=== PATIENT | male | born 1960 | race Caucasian/White ===

== ENCOUNTER 2019-03-01 18:30 | Emergency (ER) | payer OTHER ==
[~2019-03-01] VITALS: Ht 188 cm; Wt 88.5 kg
[~2019-03-01 18:30] MED LIST: AUGMENTIN 875875 MG PO; CIPRO500 MG PO; HUMIRA40 MG/0.1 SQ; HYDROCODON-ACE1 EAC8 PO; HYDROCODONE-AP1 EAC6 PO; KEFLEX500 MG PO; MULTIVITAMINS PO; MUPIROCIN22 GM TOP; NORCO 5-325 TA1 EACH PO; ONDANSETRON HCL4 M2 PO; PROTONIX40 M1 PO
[2019-03-01] MEDS ORDERED: CRESTOR20 MG PO (19:06)
[2019-03-01] MEDS ORDERED: ENTYVIO300 MG IV (19:08)
[2019-03-01 20:05] LABS: URINE BILIRUBIN NEGATIVE (Negative); URINE BLOOD NEGATIVE (Negative); URINE COLOR YELLOW; URINE GLUCOSE-RANDOM* NEGATIVE (Negative); URINE KETONES TRACE (Negative); URINE LEUKOCYTES-REFLEX NEGATIVE (Negative); URINE NITRITE-REFLEX NEGATIVE (Negative); URINE PROTEIN (DIPSTICK) NEGATIVE (Negative); URINE SPECIFIC GRAVITY 1.015 (1.005-1.035); URINE UROBILINOGEN 0.2 E.U./dl (0.2-1.0)
[2019-03-01 20:06] LABS: URINE CLARITY CLOUDY
[2019-03-01 20:07] LABS: ABSOLUTE NEUTROPHILS 5.5 thou/uL (1.4-8.2); BASOPHILS 0.7 % (0.0-2.0); EOSINOPHILS 3.2 % (0.0-3.0); HEMATOCRIT 42.4 % (42.0-52.0); HEMOGLOBIN 14.2 gm/dL (14.0-18.0); LYMPHOCYTES 21.7 % (24.0-44.0); MCH 29.4 pg (26.0-34.0); MCHC 33.6 g/dL (28.0-37.0); MCV 87.7 fL (80.0-100.0); MONOCYTES 6.8 % (1.0-8.0); PLATELET COUNT 217 thou/uL (150-400); POLYS 67.6 % (36.0-66.0); RBC 4.84 mil/uL (4.50-6.00); RDW 13.5 % (10.5-14.5); WBC 8.1 thou/uL (4.0-11.0)
[2019-03-01 20:34] LABS: CALCIUM 8.5 mg/dL (8.5-10.1); POTASSIUM 3.8 mmol/L (3.5-5.1)
[2019-03-01 20:41] LABS: ALBUMIN 3.5 g/dL (3.4-5.0); DIRECT BILIRUBIN 0.1 mg/dL (<0.1-0.3); TOTAL BILIRUBIN 0.5 mg/dL (<0.1-1.0); TOTAL PROTEIN 6.3 g/dL (6.4-8.2)
[2019-03-01 22:12] VITALS: BP 101/60
== END 2019-03-01 22:16 | disposition home or self-care (01) ==
LOC: ER 18:30
PROVIDERS: Emergency Medicine
DX: R10.12 Left upper quadrant pain (principal); Z88.5 Allergy status to narcotic agent